=== PATIENT | female | born 1975 | race Caucasian/White ===

== ENCOUNTER → 2019-07-25 08:36 | Outpatient (BNVA) | payer SELFPAY | PROVIDERS: Family Provider Electrodiagnostic Medicine; PCP Electrodiagnostic Medicine; Visit Provider Urology | DX: N39.9 Disorder of urinary system, unspecified (principal); N32.89 Other specified disorders of bladder | CPT/HCPCS: 81001 ==

== ENCOUNTER → 2023-10-12 11:26 | Outpatient (BNVA) | payer OTHER, MEDICAID, SELFPAY | PROVIDERS: Family Provider Electrodiagnostic Medicine; PCP Electrodiagnostic Medicine; Visit Provider Podiatrist Foot & Ankle Surgery | DX: M72.2 Plantar fascial fibromatosis; M24.572 Contracture, left ankle; Q82.8 Other specified congenital malformations of skin; L60.3 Nail dystrophy | CPT/HCPCS: 73630 ==

== ENCOUNTER 2023-11-26 06:00 | Outpatient (CLI) | payer OTHER, MEDICAID, SELFPAY | END 2023-11-26 06:01 | LOC: SPT 11-27 10:36 | PROVIDERS: PCP Electrodiagnostic Medicine; Visit Provider Podiatrist Foot & Ankle Surgery | DX: Z46.89 Encounter for fitting and adjustment of other specified devices (principal) | CPT/HCPCS: L4397 ==

== ENCOUNTER 2024-01-10 11:17 | Outpatient (CLI) | payer OTHER, MEDICAID, SELFPAY ==
--- NOTE | 2024-01-10 11:18 | MM_ITS ---
WS: [id number] Bilateral screening 3D tomosynthesis digital mammogram, 01/10/2024 . Clinical Data: SCREENING Comparison: 07/14/2016. Findings: The breast parenchymal pattern shows fibroglandular tissue. No spiculated masses or clustered calcifi cations are seen. There are no secondary signs of carcinoma. MM/[place] [id number] Impression: 1. Negative bilateral mammogram unchanged. 2. Recommend annual screening mammograms. BIRADS: 1-Negative FOLLOW UP: 1 Year Follow-up The CAD material checker was used.
== END 2024-01-10 11:18 | disposition home or self-care (01) ==
LOC: RAD 11:17
PROVIDERS: PCP Electrodiagnostic Medicine; Visit Provider Nurse Practitioner Family
DX: Z12.31 Encounter for screening mammogram for malignant neoplasm of breast (principal); R92.333 Mammographic heterogeneous density, bilateral breasts
CPT/HCPCS: 77063; 77067